=== PATIENT | female | born 1950 | race Caucasian/White ===

== ENCOUNTER 2016-04-12 12:06 | Emergency (ER) | payer MEDICARE ==
[~2016-04-12] VITALS: Ht 170.2 cm; Wt 68.0 kg
[2016-04-12] MEDS ORDERED: HYDROCODONE/APAP 5/325MG 1 EACH TABLET ONE (13:27)
[2016-04-12] MEDS ORDERED: HYDROCODONE/APAP 5/325MG 1 EACH TABLET PO ONE (13:30)
[2016-04-12 14:01] VITALS: BP 116/84
== END 2016-04-12 14:02 | disposition home or self-care (01) ==
LOC: ER 12:14
DX: S52.532A Colles' fracture of left radius, initial encounter for closed fracture (principal); G43.909 Migraine, unspecified, not intractable, without status migrainosus; W01.0XXA Fall on same level from slipping, tripping and stumbling without subsequent striking against object, initial encounter; Y93.89 Activity, other specified; Y92.89 Other specified places as the place of occurrence of the external cause; Y99.8 Other external cause status
CPT/HCPCS: 29125; 73110; 99284; A4606; Z7610